=== PATIENT | male | born 1970 | race African-American/Black ===

== ENCOUNTER 2018-02-13 13:26 | Inpatient (IN) | payer OTHER ==
[2018-02-13 15:32] LABS: Hematocrit 47 % (42-52); Hemoglobin 14.3 g/dl (14.0-18.0); Mean Corpuscular HGB Conc 30 g/dl (31-36); Mean Corpuscular Hemoglobin 21 pg (27-31); Mean Corpuscular Volume 68 fL (80-94); Red Blood Count 6.94 10^6/ul (4.00-5.40); Red Cell Distribution Width 26 % (10.5-15); White Blood Count 8.7 10^3/ul (3.5-10.8)
[2018-02-13 15:45] LABS: Troponin I 0.01 ng/mL (<0.04)
[2018-02-13 15:51] LABS: Albumin 4.7 g/dL (3.2-5.2); Albumin/Globulin Ratio 1.3 (1-3); BUN/Creatinine Ratio 17.1 (8-20); C Reactive Protein 28.46 mg/L (<8.01); EGFR African American 80.9 (>60); EGFR Non-African American 66.8 (>60); Globulin 3.6 g/dL (2-4); Total Bilirubin 0.4 mg/dL (0.2-1.0); Total Protein 8.3 g/dL (6.4-8.9)
[2018-02-13 15:56] LABS: ABS Basophils 0 10^3/ul (0-0.2); ABS Eosinophils 0 10^3/ul (0-0.6); ABS Monocytes 0.8 10^3/ul (0-0.8); ABS Neutrophils 6.8 10^3/ul (1.5-7.7); ABS Nucleated RBC 0 10^3/ul; Eosinophil % 0.4 %; Lymphocyte % 11.7 %; Nucleated Red Blood Cells % 0; Platelet Count 210 10^3/ul (150-450)
[2018-02-13] MEDS ORDERED: Ondansetron INJ* 2 MG/ML VIAL IV ONE (16:39)
[2018-02-13] MEDS ORDERED: NS 0.9% 1000 ML** 1,000 ML IV ONE ×2 (16:39→21:15)
[2018-02-13] MEDS ORDERED: Morphine VIAL* 4 MG/ML VIAL (1 ml vial) IV ONE (16:39)
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
[2018-02-13 17:37] LABS: Urine Appearance Cloudy; Urine Bacteria Absent (Absent); Urine Bilirubin Negative (Negative); Urine Blood Negative (Negative); Urine Color Amber; Urine Glucose Negative (Negative); Urine Ketones 1+ (Negative); Urine Nitrite Negative (Negative); Urine Protein 1+(30 mg/dL) (Negative); Urine Red Blood Cell Absent (Absent); Urine Specific Gravity 1.024 (1.010-1.030); Urine Urobilinogen Negative (Negative); Urine White Blood Cell 2+(11-20/hpf) (Absent)
[2018-02-13] MEDS ORDERED: Iodixanol* (CONTRAST) 320 MG/ML 100 ML SDV IV ONE (18:47)
[2018-02-13] MEDS ORDERED: Ondansetron INJ* 2 MG/ML VIAL IV PRN (21:29)
[2018-02-13] MEDS: NS 0.9% 1000 ML** 1,000 ML IV SCH (22:54)
[2018-02-13] MEDS ORDERED: Dextrose 50% Syringe 50 ML* 25 GM/50 ML SYRINGE IV PUSH PRN (23:07)
[2018-02-13] MEDS ORDERED: Labetalol IV* 5 MG/ML 20 ML VIAL IV PUSH PRN (23:36)
[2018-02-13] MEDS: Insulin LISPRO* 1 UNITS UNIT SUBCUT SCH (23:56)
[2018-02-14] MEDS ORDERED: Metoprolol Tartrate IV* 1 MG/ML 5 ML VIAL IV PRN (00:21)
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
[2018-02-14] MEDS: NS 0.9% 1000 ML** 1,000 ML IV SCH (05:31)
[2018-02-14 06:32] LABS: Hematocrit 45 % (42-52); Hemoglobin 13.6 g/dl (14.0-18.0); Mean Corpuscular HGB Conc 31 g/dl (31-36); Mean Corpuscular Hemoglobin 21 pg (27-31); Mean Corpuscular Volume 68 fL (80-94); Red Blood Count 6.55 10^6/ul (4.00-5.40); White Blood Count 8.7 10^3/ul (3.5-10.8)
[2018-02-14 06:47] LABS: BUN/Creatinine Ratio 18.1 (8-20); Calcium 9.2 mg/dL (8.6-10.3); EGFR African American 120.2 (>60); EGFR Non-African American 99.3 (>60); Potassium 3.7 mmol/L (3.5-5.0)
[2018-02-14 06:59] LABS: ABS Basophils 0 10^3/ul (0-0.2); ABS Eosinophils 0 10^3/ul (0-0.6); ABS Lymphocytes 1.4 10^3/ul (1.0-4.8); ABS Monocytes 0.7 10^3/ul (0-0.8); ABS Neutrophils 6.6 10^3/ul (1.5-7.7); ABS Nucleated RBC 0 10^3/ul; Eosinophil % 0.4 %; Large Platelets Present; Lymphocyte % 16.2 %; Mean Platelet Volume 8.7 fL (7.4-10.4); Nucleated Red Blood Cells % 0; Platelet Count 201 10^3/ul (150-450); Red Cell Distribution Width 26 % (10.5-15)
[2018-02-14] MEDS: Insulin LISPRO* 1 UNITS UNIT SUBCUT SCH ×4 (09:36→22:33)
[2018-02-14] MEDS: Insulin GLARGINE(*) 1 UNITS UNIT SUBCUT SCH (09:37)
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
[2018-02-14] MEDS ORDERED: D5W 1/2 NS KCl 20 Meq 1000 ML* 1,000 ML IV SCH (11:00)
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
[2018-02-14] MEDS: Pantoprazole IV* 40 MG IV PRN (19:55)
[2018-02-14] MEDS ORDERED: HYDROmorphone INJ* 0.5 MG/0.5 ML SYRINGE IV SLOW PU PRN (21:17)
[2018-02-15 06:22] LABS: Hematocrit 43 % (42-52); Mean Corpuscular HGB Conc 31 g/dl (31-36); Mean Corpuscular Hemoglobin 21 pg (27-31); Mean Corpuscular Volume 69 fL (80-94); Red Blood Count 6.19 10^6/ul (4.00-5.40); Red Cell Distribution Width 26 % (10.5-15); White Blood Count 8.1 10^3/ul (3.5-10.8)
[2018-02-15 06:35] LABS: BUN/Creatinine Ratio 11.6 (8-20); Calcium 9.1 mg/dL (8.6-10.3); EGFR African American 115.3 (>60); EGFR Non-African American 95.3 (>60); Potassium 3.7 mmol/L (3.5-5.0)
[2018-02-15 06:41] LABS: ABS Basophils 0 10^3/ul (0-0.2); ABS Eosinophils 0.1 10^3/ul (0-0.6); ABS Lymphocytes 1.2 10^3/ul (1.0-4.8); ABS Monocytes 0.8 10^3/ul (0-0.8); ABS Neutrophils 5.9 10^3/ul (1.5-7.7); ABS Nucleated RBC 0 10^3/ul; Eosinophil % 0.8 %; Lymphocyte % 15.5 %; Mean Platelet Volume 8.7 fL (7.4-10.4); Nucleated Red Blood Cells % 0; Platelet Count 185 10^3/ul (150-450)
[2018-02-15] MEDS: Insulin LISPRO* 1 UNITS UNIT SUBCUT SCH ×4 (09:04→21:50)
[2018-02-15] MEDS: Insulin GLARGINE(*) 1 UNITS UNIT SUBCUT SCH (09:04)
--- NOTE | 2018-02-15 10:52 | PN ---
Progress Note - Progress Note Date of Service: 02/15/18 Note: S: NG removed yesterday. Some nausea last night, but no vomiting. Otherwise had a good night. Has had some further loose stool, but no flatus. Carli clears well. Would like to try food. O: Vital Signs - 8 hr 02/15/18 02/15/18 02/15/18 03:12 07:34 08:00 Temperature 97.4 F 98.3 F Pulse Rate 85 79 Respiratory 18 16 16 Rate Blood Pressure 144/79 157/89 (mmHg) O2 Sat by Pulse 100 99 Oximetry Intake and Output Last 24 Hours 02/13/18 02/14/18 02/15/18 02/16/18 06:59 06:59 06:59 06:59 Intake Total 1950 1478 1990 Output Total 450 1125 0 Balance 0276 246 3484 Weight 300 lb Intake: IV Fluids 8218 250 2746 NS (0.9%) 829 173 1896 Oral 1000 Output: NG Tube Drainage Amount 650 Urine 450 475 0 Other: Estimated Void Medium Large Date of Last Bowel 02/14/18 Movement # Bowel Movements 3 1 Estimated Stool Amount Medium Medium # Voids 3 1 Gen: appears comfortable Heart:reg Lungs: clear Abd: BS (hypo); no sig distension or tympany. Soft. Mild paramidline tenderness bilaterally. AXR: pend A: SBO, appears to be resolving, though film from yesterday showed persistent dilated SB loops P: Dr. Cabrera to see; adv diet? d/c dispo?
[2018-02-16 06:30] LABS: Hematocrit 44 % (42-52); Hemoglobin 13.3 g/dl (14.0-18.0); Mean Corpuscular HGB Conc 31 g/dl (31-36); Mean Corpuscular Hemoglobin 21 pg (27-31); Mean Corpuscular Volume 69 fL (80-94); Red Blood Count 6.34 10^6/ul (4.00-5.40); Red Cell Distribution Width 26 % (10.5-15); White Blood Count 7.6 10^3/ul (3.5-10.8)
[2018-02-16 06:46] LABS: BUN/Creatinine Ratio 8.9 (8-20); Calcium 9.4 mg/dL (8.6-10.3); EGFR African American 109.4 (>60); EGFR Non-African American 90.4 (>60); Potassium 3.8 mmol/L (3.5-5.0)
[2018-02-16 06:50] LABS: ABS Basophils 0 10^3/ul (0-0.2); ABS Eosinophils 0.1 10^3/ul (0-0.6); ABS Lymphocytes 1.3 10^3/ul (1.0-4.8); ABS Monocytes 0.8 10^3/ul (0-0.8); ABS Neutrophils 5.4 10^3/ul (1.5-7.7); ABS Nucleated RBC 0 10^3/ul; Eosinophil % 0.9 %; Lymphocyte % 17.4 %; Mean Platelet Volume 8.6 fL (7.4-10.4); Nucleated Red Blood Cells % 0.1; Platelet Count 181 10^3/ul (150-450)
[2018-02-16] MEDS: Insulin LISPRO* 1 UNITS UNIT SUBCUT SCH ×4 (08:22→20:56)
[2018-02-16] MEDS: Insulin GLARGINE(*) 1 UNITS UNIT SUBCUT SCH (08:22)
--- NOTE | 2018-02-16 12:49 | PN ---
Progress Note - Progress Note Date of Service: 02/16/18 Note: Surgery Progress Note S: Patient is feeling well. He says he has had multiple normal flatus this morning and continues to have liquid BM. He denies abdominal pain, nausea, emesis. He is very hungry and would like to eat. He has been tolerating CLD well. O: Vital Signs: Temp Pulse Resp BP Pulse Ox 97.3 F 85 16 162/98 100 02/16/18 11:38 02/16/18 11:38 02/16/18 11:38 02/16/18 11:41 02/16/18 11:38 Laboratory Results - last 24 hr 02/15/18 02/15/18 02/15/18 11:42 17:45 21:44 WBC RBC Hgb Hct MCV MCH MCHC RDW Plt Count MPV Neut % (Auto) Lymph % (Auto) [place] % (Auto) Eos % (Auto) Baso % (Auto) Absolute Neuts (auto) Absolute Lymphs (auto) Absolute Monos (auto) Absolute Eos (auto) Absolute Basos (auto) Absolute Nucleated RBC Nucleated RBC % Sodium Potassium Chloride Carbon Dioxide Anion Gap BUN Creatinine Est GFR ( Amer) Est GFR (Non-Af Amer) BUN/Creatinine Ratio Glucose POC Glucose (mg/dL) 168 H 205 H 140 H Calcium 02/16/18 02/16/18 02/16/18 06:17 06:17 11:38 WBC 7.6 RBC 6.34 H Hgb 13.3 L Hct 44 MCV 69 L MCH 21 L MCHC 31 RDW 26 H Plt Count 181 MPV 8.6 Neut % (Auto) 71.1 Lymph % (Auto) 17.4 [place] % (Auto) 10.0 Eos % (Auto) 0.9 Baso % (Auto) 0.6 Absolute Neuts (auto) 5.4 Absolute Lymphs (auto) 1.3 Absolute Monos (auto) 0.8 Absolute Eos (auto) 0.1 Absolute Basos (auto) 0 Absolute Nucleated RBC 0 Nucleated RBC % 0.1 Sodium 134 L Potassium 3.8 Chloride 102 Carbon Dioxide 26 Anion Gap 6 BUN 8 Creatinine 0.90 Est GFR ( Amer) 109.4 Est GFR (Non-Af Amer) 90.4 BUN/Creatinine Ratio 8.9 Glucose 175 H POC Glucose (mg/dL) 168 H Calcium 9.4 Intake & Output 01/11/19 01/12/19 01/12/19 22:59 06:59 14:59 Intake Total 700 800 Output Total 250 Balance 450 800 Intake: Oral 700 800 Output: Urine 250 Other: Estimated Void Medium Date of Last Bowel 02/16/18 Movement # Bowel Movements 2 Estimated Stool Amount Medium # Voids 2 Physical exam: abdomen soft, mild tympany, mild tenderness in RUQ, well healed previous laparotomy incision Imaging: AXR 12/16- increase in small bowel distension, appears SBO worsening A/P: 47 M history of ex lap and RHC in the past with SBO, improving clinically. - Patient clinically improving although he did had AXR yesterday afternoon showing increase in diameter of small bowel loops. Given that he is passing gas and has no nausea, emesis while on clears will advance him to soft food today. I have advised him to take food intake slowly. Will continue to monitor.
[2018-02-17] MEDS: Pantoprazole IV* 40 MG IV PRN (03:55)
[2018-02-17] MEDS: Insulin LISPRO* 1 UNITS UNIT SUBCUT SCH ×4 (09:58→20:23)
[2018-02-17] MEDS: Insulin GLARGINE(*) 1 UNITS UNIT SUBCUT SCH (09:59)
--- NOTE | 2018-02-17 12:18 | PN ---
Progress Note - Progress Note Date of Service: 02/17/18 Note: Surgery Progress Note S: Patient feels well this morning. Yesterday had some bloating after eating soft diet for the first time but it is gone now. He tolerated soft food without abdominal pain, nausea or emesis. He continues to pass flatus and diarrhea. O: Vital Signs: Temp Pulse Resp BP Pulse Ox 97.8 F 83 18 143/75 100 02/17/18 07:51 02/17/18 07:51 02/17/18 07:53 02/17/18 07:51 02/17/18 07:51 Intake & Output 02/16/18 02/17/18 02/17/18 22:59 06:59 14:59 Intake Total 1000 120 Output Total 0 Balance 1000 120 Intake: Oral 1000 120 Output: Urine 0 Other: Estimated Void Medium Medium Date of Last Bowel 02/17/18 Movement # Bowel Movements 1 Estimated Stool Amount Medium # Voids 2 1 Labs: no new labs Physical exam: abdomen soft, minimally tympanic, nontender A/P: 47 M with history of ex lap and RHC in past with resolving SBO. - Continue soft diet today, if patient continues to tolerate and has bowel function can be discharged tomorrow
--- NOTE | 2018-02-18 09:26 | PN ---
Progress Note - Progress Note Date of Service: 02/18/18 Note: Surgery progress note S: Patient is doing well. Continues to tolerate a soft diet without nausea, emesis or abdominal pain. He did have some mild bloating overnight but less than the previous night. Continues to pass flatus and watery BM. O: Vital Signs: Temp Pulse Resp BP Pulse Ox 98.4 F 90 16 157/92 98 02/18/18 03:29 02/18/18 03:29 02/18/18 03:29 02/18/18 03:29 02/18/18 03:29 Intake & Output 02/17/18 02/18/18 02/18/18 22:59 06:59 14:59 Intake Total 500 260 300 Balance 500 260 300 Intake: Oral 500 260 300 Other: Estimated Void Medium Medium # Voids 3 1 Physical exam: abdomen soft, NTND A/P: 47 M with SBO, resolved clinically as patient is tolerating a soft diet for two days without emesis, abdominal pain and continues to have bowel function. I advised that patient should continue a slow advancement of his diet. He can be discharged and follow up with [facility] as an outpatient in 2-3 weeks.
[2018-02-18] MEDS: Insulin GLARGINE(*) 1 UNITS UNIT SUBCUT SCH (09:44)
[2018-02-18] MEDS: Insulin LISPRO* 1 UNITS UNIT SUBCUT SCH (09:45)
[2018-02-18 10:02] VITALS: BP 140/76
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
== END 2018-02-18 13:00 | DRG 247 ==
LOC: ED 13:26 → EEVIPCON 21:28 → SSU 21:28 → OBSVTOIN 22:00
PROVIDERS: ADMIT Internal Medicine; ATTEND Surgery
PROC: 0D9670Z Drainage of Stomach with Drainage Device, Via Natural or Artificial Opening (ICD-10-PCS; principal; 2018-02-13)
DX: K56.609 Unspecified intestinal obstruction, unspecified as to partial versus complete obstruction (principal); E11.9 Type 2 diabetes mellitus without complications; I10 Essential (primary) hypertension; E66.9 Obesity, unspecified; D50.9 Iron deficiency anemia, unspecified; K21.9 Gastro-esophageal reflux disease without esophagitis; Z68.37 Body mass index [BMI] 37.0-37.9, adult; Z79.4 Long term (current) use of insulin; Z79.899 Other long term (current) drug therapy; Z80.41 Family history of malignant neoplasm of ovary; Z83.3 Family history of diabetes mellitus; Z87.891 Personal history of nicotine dependence
CPT/HCPCS: 36415; 74019; 74177; 80048; 80053; 81003; 81015; 83605; 83690; 84484; 85025; 85060; 86140; 87086; 99284; J1170; J2270; J2405; J3490; Q9967